=== PATIENT | male | born 2005 | race Caucasian/White ===

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

== ENCOUNTER 2023-02-16 08:32 | Emergency (ER) | payer MEDICAID, SELFPAY ==
[2023-02-16 09:01] VITALS: BP 126/84; PULSE 84; RESP 18; TEMP 36.8; O2SAT 100; BMI 35.2
--- NOTE | 2023-02-16 09:30 | W.ED.ALLEREA ---
HPI - Allergic Reaction General: Chief complaint: Allergic Reaction Stated complaint: allergic reaction Time Seen by Provider: 02/16/23 09:17 Source: patient Mode of arrival: ambulatory History of Present Illness: HPI narrative: 17-year-old male who presents to the emergency room with complaints of multiple insect bites. He states the homeless care home stating it has bedbugs and he has bites on his torso and extremities 1 on his face. He is extremely anxious. 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 He feels like he is swelling. He is mildly tachypneic when I came to see him but not having any respiratory distress no use of accessory respiratory muscles. Associated symptoms: Deny abdominal pain, nausea or vomiting Review of Systems Const: Denies: fever(s) or chills ENMT: Denies: throat pain, ear or mastoid pain, nasal discharge or nasal congestion Card: Denies: chest pain, edema, dyspnea on exertion or orthopnea Resp: Denies: dyspnea, productive cough or non-productive cough GI: Denies: abdominal pain, nausea or vomiting : Denies: dysuria, urinary frequency or urinary urgency PFSH ED PFSH: Medical History Borderline personality disorder Obsessive-compulsive personality disorder Social History Smoking and tobacco status: current every day smoker Physical Exam Const: GENERAL APPEARANCE: cooperative and comfortable ORIENTATION/CONSCIOUSNESS: Yes awake, Yes oriented to person, Yes oriented to place and Yes oriented to time HENMT: COMMON NORMALS: normocephalic, atraumatic and hearing grossly normal bilaterally HEAD & SCALP: normocephalic and atraumatic Resp: COMMON NORMALS: normal respiratory effort, No retractions, No use of accessory muscles and clear to auscultation bilaterally AUSCULTATION: clear to auscultation bilaterally Cardio: COMMON NORMALS: regular rate, regular rhythm and No murmurs present (Cardio) RATE: regular rate RHYTHM: regular rhythm GI: COMMON NORMALS: Soft to palpation and No hepatosplenomegaly present AUSCULTATION: Yes normoactive bowel sounds PALPATION: Yes Soft to palpation, No Tenderness to palpation present (GI), No Guarding due to palpation present (GI) and Yes No hepatosplenomegaly present Extremity: COMMON NORMALS: normal to inspection, capillary refill normal, no clubbing, cyanosis or edema, no calf tenderness and no pedal edema Neuro: SENSORIUM/ORIENTATION: Yes oriented to person, Yes oriented to place and Yes oriented to time Skin: OTHER: Scattered skin irritation on extremities and trunk 1 on the face no evidence of infection no localized reactions no erythema no induration. Course Vital Signs: Vital signs: Vital Signs Temperature 97.8 F 02/16/23 09:43 Pulse Rate 74 02/16/23 09:43 Respiratory Rate 17 02/16/23 09:43 Blood Pressure 130/78 02/16/23 09:43 Pulse Oximetry 97 02/16/23 09:43 Oxygen Delivery Me thod Room Air 02/16/23 09:43 MDM - Allergic Reaction Medical Decision Making Localized irritation at the bite sites but no systemic symptoms no facial swelling no oropharyngeal swelling no wheezing no stridor. Use antihistamines and steroids as needed topical steroids to areas of irritation that are more problems some and follow-up as needed avoid reexposure. Medical Records I reviewed the patient's medical records. Lab Data I reviewed the patient's lab results. Discharge Plan Discharge Patient Disposition: Home Clinical Impression: Insect bites Condition: Stable Prescriptions: New Medrol (Manav) 4 mg tablets,dose pack See Rx Instructions .ROUTE .COMPLEX Qty: 21 0RF Rx Instructions: orally per package directions triamcinolone acetonide 0.1 % cream 1 applic topical TID Qty: 80 0RF Rx Instructions: Apply to affected areas, do not apply to face or genitals hydroxyzine HCl 25 mg tablet 25 mg PO Q6H PRN (Reason: itching) Qty: 20 0RF No Action (DME) AFO to the Right and Left Lower Extremity See Rx Instructions .Route .MEDSUPPLY Qty: 1 0RF Rx Instructions: As directed Alpha & [place] ibuprofen 200 mg Tablet 800 mg PO Q6H PRN (Reason: Pain) Adderall 7.5 mg Tablet 7.5 mg PO BID Rx Instructions: administer doses at least 4-6 hours apart gabapentin 600 mg Tablet 600 mg PO BID gabapentin 300 mg Capsule 300 mg PO QAM Ventolin HFA 90 mcg/actuation Hfa Aerosol Inhaler 2 puff INHALATION QID PRN (Reason: Shortness Of Breath Or Wheezing) Symbicort 160-4.5 mcg/actuation Hfa Aerosol Inhaler 2 puff INHALATION BID duloxetine 30 mg Capsule, Delayed Rel Sprinkle 30 mg PO DAILY Discharge Orders: Discharge ED (Routine); Ordered 02/16/23 Ordered By: Yuriy Solorio Referrals: Shweta Owen DO [Primary Care Provider] - Discharge Diet: Usual diet Discharge Activity: Resume usual activity Patient Instructions: Opioid Safety, Pain Management Coding Level of Care Code ED Profiling Machine Operator for Amena Dunbar
[2023-02-16 09:43] VITALS: BP 130/78; PULSE 74; RESP 17; TEMP 36.6; O2SAT 97
[2023-02-16] MEDS: diphenhydrAMINE 50 mg/mL SDV 1mL IM (10:07)
[2023-02-16] MEDS: dexamethasone 10 mg/mL INJ IM (10:07)
== END 2023-02-16 10:00 | disposition home or self-care (01) ==
PROVIDERS: Emergency Provider Family Medicine; PCP Family Medicine
DX: S30.861A Insect bite (nonvenomous) of abdominal wall, initial encounter (principal); S80.862A Insect bite (nonvenomous), left lower leg, initial encounter; S80.861A Insect bite (nonvenomous), right lower leg, initial encounter; S40.862A Insect bite (nonvenomous) of left upper arm, initial encounter; S40.861A Insect bite (nonvenomous) of right upper arm, initial encounter; S00.86XA Insect bite (nonvenomous) of other part of head, initial encounter; W57.XXXA Bitten or stung by nonvenomous insect and other nonvenomous arthropods, initial encounter; F17.210 Nicotine dependence, cigarettes, uncomplicated
CPT/HCPCS: 96372; 99284; J1100; J1200

== ENCOUNTER 2023-03-01 13:21 | Emergency (ER) | payer MEDICAID, SELFPAY ==
[2023-03-01 13:56] VITALS: BP 102/65; PULSE 96; RESP 17; TEMP 36.9; O2SAT 98; BMI 32.8
[2023-03-01 15:35] LABS: Basophils # 0.1 10^3/uL (0.0-0.1); Basophils % 0.8 %; Eosinophils # 0.1 10^3/uL (0.0-0.8); Eosinophils % 1.2 %; Hematocrit 48.5 % (37-53); Lymphocytes # 1.7 10^3/uL (1.5-6.5); Lymphocytes % 19.8 %; Mean Corpuscular HGB Conc 33.4 g/dL (30-55); Mean Corpuscular Hemoglobin 29.1 pg (27-33); Mean Corpuscular Volume 87.2 fl (82-101); Monocytes # 0.5 10^3/uL (0.2-0.9); Monocytes % 5.5 %; Neutrophils # 6.28 10^3/uL (1.8-8.0); Neutrophils % 72.5 %; Nucleated Red Blood Cells % 0 %; Platelet Count 344 10^3/cmm (157-399); Red Blood Count 5.56 10^6/uL (3.85-5.65); Red Cell Distribution Width 11.9 % (12.1-15.1); White Blood Count 8.67 10^3/uL (4.5-13.0)
[2023-03-01 15:51] LABS: Alanine Aminotransferase 49 U/L (0-41); Alkaline Phosphatase 105 U/L (40-130); Anion Gap 13.1 (5-19); Aspartate Amino Transferase 20 U/L (0-40); Blood Urea Nitrogen 13 mg/dL (6-20); Calcium 9.6 mg/dL (8.5-10.5); Carbon Dioxide 26 mmol/L (22-29); Chloride 105 mmol/L (98-107); Globulin 2.7 g/dL (1.3-4.6); Glomerular Filtration Rate 96.3 mL/min (90-130); Glucose 80 mg/dL (65-115); Lipase 16 U/L (13-60); Osmolality Calculated 289 mOsm/kg (285-295); Potassium 4.1 mmol/L (3.5-5.1); Sodium 140 mmol/L (136-145); Total Bilirubin 0.4 mg/dL (0.15-1.2); Total Protein 7.7 g/dL (6.6-8.7)
[2023-03-01] MEDS: ondansetron 2 mg/ML SDV 2 mL 4 MG IVP (16:43)
[2023-03-01] MEDS: sodium chloride 0.9% 1,000 ML 999 ML IV (16:43)
--- NOTE | 2023-03-01 17:07 | W.ED.NAVMDI ---
Documented by User: RICH Loaiza 03/01/23 17:11 HPI - Nausea/Vomiting/Diarrhea General: Chief complaint: Nausea/Vomiting/Diarrhea Stated complaint: N/V/D, dizzy Time Seen by Provider: 03/01/23 14:11 History of Present Illness: Patient is in today for nausea and vomiting. Patient reports that he has had intermittent abdominal pain since Sunday and then yesterday started vomiting he has vomited more than 12 times today and had 6 diarrhea episodes. He does report a little bit of blood in his vomit that is bright red. He denies any fever, chills. He reports that he has had issues similar to this in the past and he was treated with Protonix for GERD. He has not been on the Protonix for some time because it has not been refilled through his primary care provider. He does currently live in a [facility] as he is homeless. He reports that today he passed out 2 times. He reports that when he has had episodes like this in the past he is also passed out those times as well Associated nausea: Yes Associated symtoms: Reports nausea; Denies chest pain, dysuria, headache(s) or palpitations Review of Systems Const: Reports: fever(s), chills and body aches ENMT: Reports: throat pain, nasal congestion and post nasal drip Card: Denies: chest pain, palpitations or irregular heart rhythm Resp: Reports: non-productive cough; Denies: dyspnea GI: Reports: abdominal pain, nausea, vomiting, hematemesis and diarrhea : Denies: flank pain, dysuria or urinary frequency Neuro: Reports: other (Syncopal episode x2); Denies: headache(s) PFS ED PFSH: Medical History Borderline personality disorder Obsessive-compulsive personality disorder Social History Smoking and tobacco status: current every day smoker Physical Exam Const: COMMON NORMALS: no acute distress, patient oriented x3 and alert GENERAL APPEARANCE: cooperative ORIENTATION/CONSCIOUSNESS: Yes awake, Yes oriented to person, Yes oriented to place and Yes oriented to time HENMT: COMMON NORMALS: EAC's normal and TM's normal bilaterally EXTERNAL AUDITORY CANAL: EAC's normal TYMPANIC MEMBRANE: TM's normal bilaterally MOUTH: Normal oral and palatal mucosa present THROAT: posterior oropharynx normal Eye: COMMON NORMALS: Equal, round and reactive pupils present, EOMs intact bilaterally and conjunctivae normal GENERAL EYE: appearance normal, both eyes and all related structures ALIGNMENT: Yes alignment normal CONJUNCTIVA: Yes conjunctivae normal SCLERA: sclerae normal PUPIL: Yes Equal, round and reactive pupils present Neck/C-Spine: COMMON NORMALS: full ROM Resp: COMMON NORMALS: normal respiratory effort, No retractions, No use of accessory muscles and clear to auscultation bilaterally EFFORT & INSPECTION: Yes symmetric chest movement AUSCULTATION: clear to auscultation bilaterally Cardio: COMMON NORMALS: regular rate, regular rhythm, S1 normal heart sound present and S2 normal heart sound present RATE: regular rate RHYTHM: regular rhythm HEART SOUNDS: S1 normal heart sound present and S2 normal heart sound present GI: COMMON NORMALS: Soft to palpation INSPECTION: Yes normal to inspection AUSCULTATION: Yes normoactive bowel sounds PALPATION: Yes Soft to palpation and Yes Tenderness to palpation present (GI) (Generalized tenderness. No rebound tenderness) : COMMON NORMALS: Yes no CVA tenderness BLADDER/KIDNEY EXAM: Yes no CVA tenderness Back/Pelvis: COMMON NORMALS: no CVA tenderness Neuro: COMMON NORMALS: patient oriented x3 SENSORIUM/ORIENTATION: Yes alert, Yes oriented to person, Yes oriented to place and Yes oriented to time Psych: COMMON NORMALS: cooperative Skin: NARRATIVE SKIN EXAM: Numerous pinpoint scabbed lesions over trunk and bilateral upper and lower extremities. Patient reports recent bedbug infestation at the [facility]. Course Vital Signs: Vital signs: Vital Signs Temperature 98.4 F 03/01/23 13:56 Pulse Rate 96 03/01/23 13:56 Respiratory Rate 17 03/01/23 13:56 Blood Pressure 102/65 03/01/23 13:56 Pulse Oximetry 98 03/01/23 13:56 Oxygen Delivery Me thod Room Air 03/01/23 13:56 MDM - Nausea/Vomiting/Diarrhea Medical Decision Making Care of pt transferred to [facility] Scott[facility]. Lab Data 03/01/23 15:18 03/01/23 15:18 Laboratory Results WBC 8.67 10^3/uL (4.5-13.0) 03/01/23 15:18 RBC 5.56 10^6/uL (3.85-5.65) 03/01/23 15:18 Hgb 16.20 g/dL (13.2-15.6) H 03/01/23 15:18 Hct 48.5 % (37-53) 03/01/23 15:18 MCV 87.2 fl (82-101) 03/01/23 15:18 MCH 29.1 pg (27-33) 03/01/23 15:18 MCHC 33.4 g/dL (30-55) 03/01/23 15:18 RDW 11.9 % (12.1-15.1) L 03/01/23 15:18 Plt Count 344 10^3/cmm (157-399) 03/01/23 15:18 MPV 11.0 fL (7.4-10.4) H 03/01/23 15:18 Neut % (Auto) 72.5 % 03/01/23 15:18 Lymph % (Auto) 19.8 % 03/01/23 15:18 [place] % (Auto) 5.5 % 03/01/23 15:18 Eos % (Auto) 1.2 % 03/01/23 15:18 Baso % (Auto) 0.8 % 03/01/23 15:18 Neut # (Auto) 6.28 10^3/uL (1.8-8.0) 03/01/23 15:18 Lymph # (Auto) 1.7 10^3/uL (1.5-6.5) 03/01/23 15:18 [place] # (Auto) 0.5 10^3/uL (0.2-0.9) 03/01/23 15:18 Eos # (Auto) 0.1 10^3/uL (0.0-0.8) 03/01/23 15:18 Baso # (Auto) 0.1 10^3/uL (0.0-0.1) 03/01/23 15:18 Nucleated RBC % (auto) 0 % 03/01/23 15:18 Nucleated RBCs # 0.0 /100WBC 03/01/23 15:18 Sodium 140 mmol/L (136-145) 03/01/23 15:18 Potassium 4.1 mmol/L (3.5-5.1) 03/01/23 15:18 Chloride 105 mmol/L (98-107) 03/01/23 15:18 Carbon Dioxide 26 mmol/L (22-29) 03/01/23 15:18 Anion Gap 13.1 (5-19) 03/01/23 15:18 BUN 13 mg/dL (6-20) 03/01/23 15:18 Creatinine 1.0 mg/dL (0.7-1.2) 03/01/23 15:18 GFR Calculation 96.3 mL/min (90-130) 03/01/23 15:18 Glucose 80 mg/dL (65-115) 03/01/23 15:18 Calculated Osmolality 289 mOsm/kg (285-295) 03/01/23 15:18 Calcium 9.6 mg/dL (8.5-10.5) 03/01/23 15:18 Total Bilirubin 0.4 mg/dL (0.15-1.2) 03/01/23 15:18 AST 20 U/L (0-40) 03/01/23 15:18 ALT 49 U/L (0-41) H 03/01/23 15:18 Alkaline Phosphatase 105 U/L (40-130) 03/01/23 15:18 Total Protein 7.7 g/dL (6.6-8.7) 03/01/23 15:18 Albumin 5.0 g/dL (3.5-5.2) 03/01/23 15:18 Globulin 2.7 g/dL (1.3-4.6) 03/01/23 15:18 Lipase 16 U/L (13-60) 03/01/23 15:18 Discharge Plan Discharge Patient Disposition: Home Clinical Impression: Gastritis Qualifiers: Gastritis type: unspecified gastritis Chronicity: acute Gastritis bleeding: presence of bleeding unspecified Qualified Code(s): K29.00 - Acute gastritis without bleeding Condition: Stable Prescriptions: New promethazine 12.5 mg tablet 12.5 mg PO TID PRN (Reason: nausea and vomiting) Qty: 15 0RF Rx Instructions: 3 doses during day; last dose no later than 4 hr before bedtime pantoprazole 40 mg tablet,delayed release (DR/EC) 40 mg PO DAILY Qty: 30 0RF No Action (DME) AFO to the Right and Left Lower Extremity See Rx Instructions .Route .MEDSUPPLY Qty: 1 0RF Rx Instructions: As directed [place] [facility] [place] ibuprofen 200 mg Tablet 800 mg PO Q6H PRN (Reason: Pain) triamcinolone acetonide 0.1 % cream 1 applic topical TID Qty: 80 0RF Rx Instructions: Apply to affected areas, do not apply to face or genitals hydroxyzine HCl 25 mg tablet 25 mg PO Q6H PRN (Reason: itching) Qty: 20 0RF dextroamphetamine-amphetamine [Adderall] 7.5 mg Tablet 7.5 mg PO BID Rx Instructions: administer doses at least 4-6 hours apart gabapentin 600 mg Tablet 600 mg PO BID Rx Instructions: in afternoon and night gabapentin 300 mg Capsule 300 mg PO QAM albuterol sulfate [Ventolin HFA] 90 mcg/actuation Hfa Aerosol Inhaler 2 puff INHALATION QID PRN (Reason: Shortness Of Breath Or Wheezing) budesonide-formoterol [Symbicort] 160-4.5 mcg/actuation Hfa Aerosol Inhaler 2 puff INHALATION BID duloxetine 30 mg Capsule, Delayed Rel Sprinkle 30 mg PO DAILY acetaminophen 500 mg Tablet 1,000 mg PO Q6H PRN (Reason: Pain) Discharge Orders: Discharge ED (Routine); Ordered 03/01/23 Ordered By: Virgilio Berger Referrals: Shweta Owen DO [Primary Care Provider] - Discharge Diet: Advance as tolerated Discharge Activity: Increase activity as tolerated Patient Instructions: Gastritis in Children (ED) Activity Restrictions/Additional Instructions: Use promethazine 1 tablet every 8 hours as needed for nausea or vomiting. Light diet avoiding really acidic or spicy foods. Drink frequent sips of fluid to maintain hydration. Take pantoprazole as directed. Follow-up with primary care for further instructions. Return to ED for new concerns. Coding Level of Care Code ED Truck Spotter for Chg Fwd Documented by User: BOBY Holder 03/01/23 17:59 HPI - Nausea/Vomiting/Diarrhea General: Chief complaint: Nausea/Vomiting/Diarrhea Stated complaint: N/V/D, dizzy Time Seen by Provider: 03/01/23 14:11 PFSH ED PFSH: Medical History Borderline personality disorder Obsessive-compulsive personality disorder Social History Smoking and tobacco status: current every day smoker Course Vital Signs: Vital signs: Vital Signs Temperature 98.4 F 03/01/23 13:56 Pulse Rate 96 03/01/23 13:56 Respiratory Rate 17 03/01/23 13:56 Blood Pressure 102/65 03/01/23 13:56 Pulse Oximetry 98 03/01/23 13:56 Oxygen Delivery Me thod Room Air 03/01/23 13:56 MDM - Nausea/Vomiting/Diarrhea Medical Decision Making Care of pt transferred to Paul Berger. Received patient from BOBY Loaiza. Patient has some nausea and vomiting starting today. Patient reports a history of GERD and believes he has had an exacerbation of it. Patient appears nontoxic. On my exam patient was eating a sandwich and tolerating it. Patient reports continued some epigastric discomfort. Differential diagnosis includes GERD, gastritis, dehydration, malingering, appendicitis. Laboratory values were unremarkable. No signs of appendicitis were noted on exam or other surgical abdomen. Patient was recommended to eat a light diet drink plenty of fluids. Patient was written a prescription for pantoprazole with recommendations to follow-up with primary care. Patient was also given promethazine to help treat nausea and vomiting as needed. Patient reported understanding of care plan and need for follow-up. Lab Data 03/01/23 15:18 03/01/23 15:18 Laboratory Results WBC 8.67 10^3/uL (4.5-13.0) 03/01/23 15:18 RBC 5.56 10^6/uL (3.85-5.65) 03/01/23 15:18 Hgb 16.20 g/dL (13.2-15.6) H 03/01/23 15:18 Hct 48.5 % (37-53) 03/01/23 15:18 MCV 87.2 fl (82-101) 03/01/23 15:18 MCH 29.1 pg (27-33) 03/01/23 15:18 MCHC 33.4 g/dL (30-55) 03/01/23 15:18 RDW 11.9 % (12.1-15.1) L 03/01/23 15:18 Plt Count 344 10^3/cmm (157-399) 03/01/23 15:18 MPV 11.0 fL (7.4-10.4) H 03/01/23 15:18 Neut % (Auto) 72.5 % 03/01/23 15:18 Lymph % (Auto) 19.8 % 03/01/23 15:18 [place] % (Auto) 5.5 % 03/01/23 15:18 Eos % (Auto) 1.2 % 03/01/23 15:18 Baso % (Auto) 0.8 % 03/01/23 15:18 Neut # (Auto) 6.28 10^3/uL (1.8-8.0) 03/01/23 15:18 Lymph # (Auto) 1.7 10^3/uL (1.5-6.5) 03/01/23 15:18 [place] # (Auto) 0.5 10^3/uL (0.2-0.9) 03/01/23 15:18 Eos # (Auto) 0.1 10^3/uL (0.0-0.8) 03/01/23 15:18 Baso # (Auto) 0.1 10^3/uL (0.0-0.1) 03/01/23 15:18 Nucleated RBC % (auto) 0 % 03/01/23 15:18 Nucleated RBCs # 0.0 /100WBC 03/01/23 15:18 Sodium 140 mmol/L (136-145) 03/01/23 15:18 Potassium 4.1 mmol/L (3.5-5.1) 03/01/23 15:18 Chloride 105 mmol/L (98-107) 03/01/23 15:18 Carbon Dioxide 26 mmol/L (22-29) 03/01/23 15:18 Anion Gap 13.1 (5-19) 03/01/23 15:18 BUN 13 mg/dL (6-20) 03/01/23 15:18 Creatinine 1.0 mg/dL (0.7-1.2) 03/01/23 15:18 GFR Calculation 96.3 mL/min (90-130) 03/01/23 15:18 Glucose 80 mg/dL (65-115) 03/01/23 15:18 Calculated Osmolality 289 mOsm/kg (285-295) 03/01/23 15:18 Calcium 9.6 mg/dL (8.5-10.5) 03/01/23 15:18 Total Bilirubin 0.4 mg/dL (0.15-1.2) 03/01/23 15:18 AST 20 U/L (0-40) 03/01/23 15:18 ALT 49 U/L (0-41) H 03/01/23 15:18 Alkaline Phosphatase 105 U/L (40-130) 03/01/23 15:18 Total Protein 7.7 g/dL (6.6-8.7) 03/01/23 15:18 Albumin 5.0 g/dL (3.5-5.2) 03/01/23 15:18 Globulin 2.7 g/dL (1.3-4.6) 03/01/23 15:18 Lipase 16 U/L (13-60) 03/01/23 15:18 Discharge Plan Discharge Patient Disposition: Home Clinical Impression: Gastritis Qualifiers: Gastritis type: unspecified gastritis Chronicity: acute Gastritis bleeding: presence of bleeding unspecified Qualified Code(s): K29.00 - Acute gastritis without bleeding Condition: Stable Prescriptions: New promethazine 12.5 mg tablet 12.5 mg PO TID PRN (Reason: nausea and vomiting) Qty: 15 0RF Rx Instructions: 3 doses during day; last dose no later than 4 hr before bedtime pantoprazole 40 mg tablet,delayed release (DR/EC) 40 mg PO DAILY Qty: 30 0RF No Action (DME) AFO to the Right and Left Lower Extremity See Rx Instructions .Route .MEDSUPPLY Qty: 1 0RF Rx Instructions: As directed Alpha & [place] ibuprofen 200 mg Tablet 800 mg PO Q6H PRN (Reason: Pain) triamcinolone acetonide 0.1 % cream 1 applic topical TID Qty: 80 0RF Rx Instructions: Apply to affected areas, do not apply to face or genitals hydroxyzine HCl 25 mg tablet 25 mg PO Q6H PRN (Reason: itching) Qty: 20 0RF dextroamphetamine-amphetamine [Adderall] 7.5 mg Tablet 7.5 mg PO BID Rx Instructions: administer doses at least 4-6 hours apart gabapentin 600 mg Tablet 600 mg PO BID Rx Instructions: in afternoon and night gabapentin 300 mg Capsule 300 mg PO QAM albuterol sulfate [Ventolin HFA] 90 mcg/actuation Hfa Aerosol Inhaler 2 puff INHALATION QID PRN (Reason: Shortness Of Breath Or Wheezing) budesonide-formoterol [Symbicort] 160-4.5 mcg/actuation Hfa Aerosol Inhaler 2 puff INHALATION BID duloxetine 30 mg Capsule, Delayed Rel Sprinkle 30 mg PO DAILY acetaminophen 500 mg Tablet 1,000 mg PO Q6H PRN (Reason: Pain) Discharge Orders: Discharge ED (Routine); Ordered 03/01/23 Ordered By: Virgilio Berger Referrals: Shweta Owen DO [Primary Care Provider] - Discharge Diet: Advance as tolerated Discharge Activity: Increase activity as tolerated Patient Instructions: Gastritis in Children (ED) Activity Restrictions/Additional Instructions: Use promethazine 1 tablet every 8 hours as needed for nausea or vomiting. Light diet avoiding really acidic or spicy foods. Drink frequent sips of fluid to maintain hydration. Take pantoprazole as directed. Follow-up with primary care for further instructions. Return to ED for new concerns. Coding Level of Care Code ED Truck Spotter for Amena Dunbar
== END 2023-03-01 18:35 | disposition home or self-care (01) ==
PROVIDERS: Nurse Practitioner Family; Emergency Provider Nurse Practitioner Family; PCP Family Medicine
DX: K29.00 Acute gastritis without bleeding (principal); F17.210 Nicotine dependence, cigarettes, uncomplicated
CPT/HCPCS: 36415; 80053; 83690; 85025; 96361; 96374; 99284; J2405; J7030

== ENCOUNTER 2023-08-28 19:03 | Emergency (ER) | payer SELFPAY ==
[2023-08-28 19:37] VITALS: BP 118/72; PULSE 74; RESP 16; TEMP 36.8; O2SAT 97; BMI 31.8
--- NOTE | 2023-08-28 20:47 | W.ED.GENADLT ---
HPI - General Adult General: Chief complaint: General Medical Stated complaint: Left side of face swelling Time Seen by Provider: 08/28/23 20:47 Source: patient Mode of arrival: ambulatory Limitations: no limitations History of Present Illness: 18yo male presents with sudden onset localized swelling to the left lower jaw/cheek area that started this morning. Patient reports that it was marble size this morning and it has now progressed. States that the area is numb. States that he has had mild lightheadedness. Reports increased discomfort to the area when he is opening his mouth or when he is eating. He denies any fevers, chills, recent illness, bad teeth, any other concerns at this time. Review of Systems Const: Denies: fever(s) or chills ENMT: Reports: other (swelling left lower jaw/face) [facility] ED PFSH: Medical History Obsessive-compulsive personality disorder Borderline personality disorder Social History Smoking and tobacco/nicotine status: current every day tobacco/nicotine user Physical Exam Const: COMMON NORMALS: no acute distress GENERAL APPEARANCE: cooperative ORIENTATION/CONSCIOUSNESS: Yes awake OTHER: Patient is ambulatory to the exam room unassisted. He is sitting upright on stretcher no acute distress. He is able to give history with no difficulty. No family is at bedside HENMT: COMMON NORMALS: normocephalic, external ears normal and Normal external nose present HEAD & SCALP: normocephalic FACE & SINUS: no erythema and no laceration FACE & SINUS IMAGES: 1. localized swelling. no fluctuance noted. NOSE: Normal external nose present EXTERNAL EAR: Yes external ears normal and Yes external ear abnormal TYMPANIC MEMBRANE: TM normal on the left MOUTH: Normal oral and palatal mucosa present and lip normal Eye: COMMON NORMALS: conjunctivae normal CONJUNCTIVA: Yes conjunctivae normal Neck/C-Spine: COMMON NORMALS: full ROM Chest: CHEST: Yes Symmetrical chest wall rise Resp: COMMON NORMALS: normal respiratory effort and clear to auscultation bilaterally AUSCULTATION: clear to auscultation bilaterally Cardio: COMMON NORMALS: regular rate and regular rhythm RATE: regular rate RHYTHM: regular rhythm Skin: COMMON NORMALS: no rashes or lesions noted GENERAL SKIN EXAM: no rashes or lesions noted Course Vital Signs: Vital signs: Vital Signs Temperature 98.3 F 08/28/23 19:37 Pulse Rate 76 08/28/23 21:30 Respiratory Rate 16 08/28/23 19:37 Blood Pressure 118/72 08/28/23 19:37 Pulse Oximetry 99 08/28/23 21:30 Oxygen Delivery Me thod Room Air 08/28/23 19:37 MDM - General Adult Medical Decision Making 18yo male here for evaluation of localized swelling to the left lower jaw/cheek area that has been ongoing since this morning. Patient reports that it started about the size of a marble and has continued to increase in size. States that it is itchy. Reports that the area is numb and slightly sore around the area. He denies fall, trauma, known injury, fever, dental issues, any other concern at this time. Patient is nontoxic in appearance. Vital signs are stable. Discussed with patient this is potentially a cyst, but more likely infectious. Augmentin provided while in the emergency department and prescription was sent to patient's pharmacy. Discussed with patient he can continue to use [id number] Benadryl to help with the itching, but he may wish to switch to cetirizine/loratadine to see if he has better relief. Advised application of a cool compress and continue to monitor closely. Recommend he follow-up with primary care, call later this week with an update of symptoms and to discuss a recheck. Advised to return to the emergency department if any rapid worsening symptoms, onset of fever associated with worsening, and as needed. Patient states understanding has no further questions or concerns at this time. Medical Records I reviewed the patient's medical records. No radiology studies performed this visit Discharge Plan Discharge Patient Disposition: Home Clinical Impression: Infection, face Condition: Stable Prescriptions: New amoxicillin-pot clavulanate 875-125 mg tablet 1 tab PO Q12H Qty: 14 0RF No Action (DME) AFO to the Right and Left Lower Extremity See Rx Instructions .Route .MEDSUPPLY Qty: 1 0RF Rx Instructions: As directed [facility] [place] ibuprofen 200 mg Tablet 800 mg PO Q6H PRN (Reason: Pain) triamcinolone acetonide 0.1 % cream 1 applic topical TID Qty: 80 0RF Rx Instructions: Apply to affected areas, do not apply to face or genitals hydroxyzine HCl 25 mg tablet 25 mg PO Q6H PRN (Reason: itching) Qty: 20 0RF dextroamphetamine-amphetamine [Adderall] 7.5 mg Tablet 7.5 mg PO BID Rx Instructions: administer doses at least 4-6 hours apart gabapentin 600 mg Tablet 600 mg PO BID Rx Instructions: in afternoon and night gabapentin 300 mg Capsule 300 mg PO QAM albuterol sulfate [Ventolin HFA] 90 mcg/actuation Hfa Aerosol Inhaler 2 puff INHALATION QID PRN (Reason: Shortness Of Breath Or Wheezing) budesonide-formoterol [Symbicort] 160-4.5 mcg/actuation Hfa Aerosol Inhaler 2 puff INHALATION BID duloxetine 30 mg Capsule, Delayed Rel Sprinkle 30 mg PO DAILY acetaminophen 500 mg Tablet 1,000 mg PO Q6H PRN (Reason: Pain) promethazine 12.5 mg tablet 12.5 mg PO TID PRN (Reason: nausea and vomiting) Qty: 15 0RF Rx Instructions: 3 doses during day; last dose no later than 4 hr before bedtime pantoprazole 40 mg tablet,delayed release (DR/EC) 40 mg PO DAILY Qty: 30 0RF Discharge Orders: Discharge ED (Routine); Ordered 08/28/23 Ordered By: Red Burnett Referrals: Shweta Owen DO [Primary Care Provider] - Discharge Diet: Advance as tolerated Discharge Activity: Resume usual activity Activity Restrictions/Additional Instructions: Continue to monitor for any rapid worsening You may use cetirizine (Zyrtec) or loratadine (Claritin) in addition to [id number] Benadryl to help with the itching. You will also want to apply a cool compress to help with the swelling and itching Augmentin has been sent to your pharmacy due to concern of infection Follow-up with your doctor, call in the next few days with an update of symptoms and to discuss a recheck Return to the emergency department if any rapid worsening symptoms, difficulty breathing, difficulty swallowing, and as needed. Coding Level of Care Code ED Interior Specialist for Amena Dunbar
[2023-08-28] MEDS: diphenhydrAMINE 50 mg Capsule PO (21:25)
[2023-08-28] MEDS: amoxicillin-clav 875-125 mg Tablet 1 TAB PO (21:25)
[2023-08-28 21:30] VITALS: PULSE 76; O2SAT 99
== END 2023-08-28 21:30 | disposition home or self-care (01) ==
PROVIDERS: Emergency Provider Nurse Practitioner; PCP Family Medicine
DX: B99.9 Unspecified infectious disease (principal); Z72.0 Tobacco use
CPT/HCPCS: 99283; Q0163

== ENCOUNTER 2024-04-01 16:18 | Emergency (ER) | payer SELFPAY ==
[2024-04-01 16:19] VITALS: BP 136/76; PULSE 74; RESP 18; TEMP 36.7; O2SAT 98; BMI 25.8
[2024-04-01 16:42] LABS: Basophils # 0.1 10^3/uL (0.0-0.1); Basophils % 0.8 %; Eosinophils # 0.2 10^3/uL (0.0-0.8); Eosinophils % 2.1 %; Hematocrit 42.1 % (37-53); Lymphocytes # 1.8 10^3/uL (1.5-6.5); Lymphocytes % 23.3 %; Mean Corpuscular Volume 90.9 fl (82-101); Mean Platelet Volume 10.7 fL (7.4-10.4); Monocytes # 0.5 10^3/uL (0.2-0.9); Monocytes % 6.1 %; Neutrophils # 5.19 10^3/uL (1.8-8.0); Neutrophils % 67.6 %; Nucleated Red Blood Cells % 0 %; Platelet Count 258 10^3/cmm (157-399); Red Blood Count 4.63 10^6/uL (3.85-5.65); Red Cell Distribution Width 12.8 % (12.1-15.1); White Blood Count 7.68 10^3/uL (4.5-13.0)
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
[2024-04-01 16:58] LABS: Alanine Aminotransferase 33 U/L (0-41); Albumin Level 4.3 g/dL (3.5-5.2); Alkaline Phosphatase 98 U/L (40-130); Anion Gap 17.7 (5-19); Aspartate Amino Transferase 17 U/L (0-40); Blood Urea Nitrogen 20 mg/dL (6-20); Calcium 9.2 mg/dL (8.5-10.5); Carbon Dioxide 21 mmol/L (22-29); Chloride 105 mmol/L (98-107); Creatinine Clr Calc Pharmacy 141.5904; Globulin 2.8 g/dL (1.3-4.6); Glomerular Filtration Rate 107.6 mL/min (90-130); Glucose 82 mg/dL (65-115); Osmolality Calculated 292 mOsm/kg (285-295); Potassium 3.7 mmol/L (3.5-5.1); Sodium 140 mmol/L (136-145); Total Bilirubin 0.6 mg/dL (0.15-1.2); Total Protein 7.1 g/dL (6.6-8.7)
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
[2024-04-01] MEDS: ketorolac 30 mg/mL INJ IVP (17:18)
[2024-04-01] MEDS: iohexol 350 mg/mL 500 mL Btl (per mL) IV (17:41)
[2024-04-01 17:44] VITALS: BP 128/67; PULSE 75; O2SAT 96
[2024-04-01 18:14] VITALS: BP 108/58; PULSE 70; O2SAT 96
== END 2024-04-01 18:15 | disposition home or self-care (01) ==
PROVIDERS: Emergency Provider Family Medicine; PCP Family Medicine
DX: M25.512 Pain in left shoulder (principal); M25.511 Pain in right shoulder; M54.9 Dorsalgia, unspecified; M25.551 Pain in right hip; V03.131A Pedestrian on standing electric scooter injured in collision with car, pick-up or van in traffic accident, initial encounter; Y92.410 Unspecified street and highway as the place of occurrence of the external cause
CPT/HCPCS: 36415; 70450; 71260; 72125; 74177; 80053; 85025; 96374; 99285; J1885

== ENCOUNTER 2024-09-02 10:24 | Emergency (ER) | payer OTHER, SELFPAY ==
[2024-09-02 10:30] VITALS: BP 120/78; PULSE 85; TEMP 36.9; O2SAT 97; BMI 27.2
--- NOTE | 2024-09-02 10:36 | ECG_ITS ---
[facility]: 2024-09-02 Pat Name: Aneudy Lehman Department: Room: Gender: Male Water Project Manager: : 2005 Requested By: Angela Dennison Order Number: [id number] Nieto MD: Jose Gonzales M.D. Measurements Intervals [place] Rate: 82 P: 39 FL: 143 QRS: 16 QRSD: 100 T: 33 QT: 349 QTc: 409 Interpretive Statements SINUS RHYTHM No previous ECG available for comparison Electronically Signed On 09-06-2024 19:45:36 ACCOUNT SUPERVISOR by Jose Gonzales M.D. [id number]
--- NOTE | 2024-09-02 10:37 | XRR_ITS ---
PROCEDURE INFORMATION: Exam: XR Chest Exam date and time: 09/02/2024 10:46 AM Age: 19 years old Clinical indication: Other: Syncope TECHNIQUE: Imaging protocol: Radiologic exam of the chest. Views: 1 view. COMPARISON: CT chest abdpel w/*[id number] 04/01/2024 5:29 PM FINDINGS: Lungs: Unremarkable. No consolidation. Pleural spaces: Unremarkable. No pleural effusion. No pneumothorax. Heart/Mediastinum: Unremarkable. No cardiomegaly. Bones/joints: Unremarkable. XR/XR chest 1V portable [id number] IMPRESSION: No acute findings.
[2024-09-02 10:58] LABS: Basophils # 0.1 10^3/uL (0.0-0.1); Eosinophils # 0.2 10^3/uL (0.0-0.8); Eosinophils % 2.5 %; Hematocrit 42.9 % (37-53); Lymphocytes # 1.7 10^3/uL (0.8-4.8); Mean Corpuscular HGB Conc 33.3 g/dL (30-55); Mean Corpuscular Volume 90.1 fl (82-101); Mean Platelet Volume 10.5 fL (7.4-10.4); Monocytes # 0.5 10^3/uL (0.2-0.9); Monocytes % 7.7 %; Neutrophils # 4.35 10^3/uL (1.8-7.7); Neutrophils % 63.7 %; Nucleated Red Blood Cells % 0 %; Platelet Count 259 10^3/cmm (157-399); Red Blood Count 4.76 10^6/uL (3.85-5.65); Red Cell Distribution Width 12.3 % (12.1-15.1); White Blood Count 6.84 10^3/uL (3.29-11.43)
[2024-09-02 11:20] LABS: Alanine Aminotransferase 33 U/L (0-41); Albumin Level 4.1 g/dL (3.5-5.2); Alkaline Phosphatase 110 U/L (40-130); Anion Gap 14.2 (5-19); Aspartate Amino Transferase 16 U/L (0-40); Blood Urea Nitrogen 12 mg/dL (6-20); Carbon Dioxide 23 mmol/L (22-29); Chloride 106 mmol/L (98-107); Creatinine Clr Calc Pharmacy 117.6075; Globulin 2.7 g/dL (1.3-4.6); Glomerular Filtration Rate 84.5 mL/min (90-130); Glucose 93 mg/dL (65-115); Osmolality Calculated 287 mOsm/kg (285-295); Potassium 4.2 mmol/L (3.5-5.1); Sodium 139 mmol/L (136-145); Total Bilirubin 0.3 mg/dL (0.15-1.2); Total Protein 6.8 g/dL (6.6-8.7)
[2024-09-02 11:40] LABS: Thyroid Stimulating Hormone 1.35 uIU/mL (0.27-4.20)
--- NOTE | 2024-09-02 12:35 | CT_ITS ---
WS: [id number] CT HEAD NONCONTRAST HISTORY: syncope TECHNIQUE: Contiguous axial imaging performed through the brain. Bone and soft tissue windows. Sagittal and coronal reformats reviewed. All CT scans at [facility] use at least one of these dose optimization techniques: automated exposure control; mA and/or kV adjustment per patient size (includes targeted exams where dose is matched to clinical indication); or iterative reconstruction. DLP: 1103.78 mGy.cm COMPARISON: 04/01/2024 No acute intracranial hemorrhage, midline shift or mass effect. No atrophy or prior infarcts or herniation. Ventricles: Normal size with no hydrocephalus. Paranasal sinuses: As visualized are clear. Mastoid air cells: Well pneumatized. Calvarium and scalp: Skull is intact with no soft tissue edema or swelling. CT/CT head wo con* [id number] IMPRESSION: Negative head CT.
[2024-09-02 12:40] VITALS: BP 111/75; PULSE 82; O2SAT 97
--- NOTE | 2024-09-02 12:47 | ED_ITS ---
HPI - Syncope 2 General: Chief Complaint: Syncope Stated Complaint: Syncope Time Seen by Provider: 09/02/24 12:35 Source: patient Mode of arrival: ambulatory Limitations: no limitations History of Present Illness: 19-year-old male states has been having episodes of passing out for little over a year. He states that it has been going on for a year and it just happens randomly denies it being with postural states he has had standing and laying down he had some episodes of nausea with it in the past she denies any chest pain denies any headaches he denies any worse improving factors. Associated symptoms: Reports nausea; Deny abdominal pain, chest pain, fever(s) or headache(s) Related Data Home Medications ?Medication ?Instructions ?Recorded ?Confirmed albuterol sulfate 90 mcg/actuation 2 puff inhalation Q ID PRN 02/16/23 09/02/24 aerosol inhaler (Ventolin HFA) Shortness Of Breath Or Wheezing budesonide-formoterol HFA 160 2 puff inhalation BID IN N 02/16/23 09/02/24 mcg-4.5 mcg/actuation aerosol Shortness Of Breath inhaler (Symbicort) gabapentin 300 mg capsule 300 mg PO QAM 02/16/2309/02 hydroxyzine HCl 25 mg tablet 25 mg PO Q6H PRN Itching 09/02/24 09/02/24 Previous Rx's ?Medication ?Instructions ?Recorded AFO to the Right and Left Lower #1 ea 10/26/22 Extremity ondansetron 4 mg disintegrating 4 mg PO Q6H PRN nausea and 09/02/24 tablet vomiting #14 tabs Allergies Allergy/AdvReac Type Severity Reaction Status Date / Time poison brian extract Allergy Intermediate ADR-Anxiety Verified 08/28/23 19:37 Influenza Virus Vaccines Allergy Unknown Verified 08/28/23 19:37 Review of Systems 2 Const: Denies: fever(s), chills, body aches or change in appetite ENMT: Denies: throat pain or dental pain Card: Reports: syncope; Denies: chest pain Resp: Denies: dyspnea GI: Reports: nausea and vomiting; Denies: abdominal pain or diarrhea : Denies: dysuria Musc: Denies: neck pain or back pain Skin/Breast: Denies: rash Neuro: Denies: headache(s) PFSH ED 2 PFSH: Medical History Obsessive-compulsive personality disorder Borderline personality disorder Social History Smoking and tobacco/nicotine status: current every day tobacco/nicotine user Physical Exam 2 Const: COMMON NORMALS: no acute distress, patient oriented x3 and healthy appearing HENMT: COMMON NORMALS: normocephalic and atraumatic HEAD & SCALP: n ormocephalic and atraumatic Eye: COMMON NORMALS: Equal, round and reactive pupils present and EOMs intact bilaterally PUPIL: Yes Equal, round and reactive pupils present Neck/C-Spine: COMMON NORMALS: full ROM and supple Chest: COMMONS NORMALS: normal inspection of the chest and normal palpation of entire chest wall Resp: COMMON NORMALS: normal respiratory effort, No retractions, No use of accessory muscles and clear to auscultation bilaterally AUSCULTATION: clear to auscultation bilaterally Cardio: COMMON NORMALS: regular rate, regular rhythm and No murmurs present (Cardio) RATE: regular rate RHYTHM: regular rhythm GI: COMMON NORMALS: Normal to inspection, nondistended, normoactive bowel sounds present, Soft to palpation, non-tender and no masses PALPATION: Yes Soft to palpation Extremity: COMMON NORMALS: normal to inspection and full ROM Neuro: COMMON NORMALS: patient oriented x3, moves all extremities and no focal motor deficits Psych: COMMON NORMALS: mental status grossly normal, Normal thought process present and cooperative THOUGHT PROCESS: Normal thought process present Skin: COMMON NORMALS: no rashes or lesions noted and no wounds GENERAL SKIN EXAM: no rashes or lesions noted Course 2 Vital Signs: Vital signs: Vital Signs Temperature 98.5 F 09/02/24 10:30 Pulse Rate 75 09/02/24 13:10 Blood Pressure 113/75 09/02/24 13:10 Pulse Oximetry 96 09/02/24 13:10 Oxygen Delivery Me thod Room Air 09/02/24 13:10 MDM - Syncope Medical Decision Making Patient presents here after a syncopal event has been having syncopal events for a year imaging blood work here is normal he needs to follow-up with PCP return if worsening he understands agrees plan Lab Data I reviewed the patient's lab results. 09/02/24 10:50 09/02/24 10:50 Radiology Impressions Chest X-Ray 09/02/24 10:37 IMPRESSION: No acute findings. Head CT 09/02/24 12:35 IMPRESSION: Negative head CT. Laboratory Results WBC 6.84 10^3/uL (3.29-11.43) 09/02/24 10:50 RBC 4.76 10^6/uL (3.85-5.65) 09/02/24 10:50 Hgb 14.30 g/dL (11.27-16.99) 09/02/24 10:50 Hct 42.9 % (37-53) 09/02/24 10:50 MCV 90.1 fl (82-101) 09/02/24 10:50 MCH 30.0 pg (27-33) 09/02/24 10:50 MCHC 33.3 g/dL (30-55) 09/02/24 10:50 RDW 12.3 % (12.1-15.1) 09/02/24 10:50 Plt Count 259 10^3/cmm (157-399) 09/02/24 10:50 MPV 10.5 fL (7.4-10.4) H 09/02/24 10:50 Neut % (Auto) 63.7 % 09/02/24 10:50 Lymph % (Auto) 25.0 % 09/02/24 10:50 Kaufman % (Auto) 7.7 % 09/02/24 10:50 Eos % (Auto) 2.5 % 09/02/24 10:50 Baso % (Auto) 1.0 % 09/02/24 10:50 Neut # (Auto) 4.35 10^3/uL (1.8-7.7) 09/02/24 10:50 Lymph # (Auto) 1.7 10^3/uL (0.8-4.8) 09/02/24 10:50 Kaufman # (Auto) 0.5 10^3/uL (0.2-0.9) 09/02/24 10:50 Eos # (Auto) 0.2 10^3/uL (0.0-0.8) 09/02/24 10:50 Baso # (Auto) 0.1 10^3/uL (0.0-0.1) 09/02/24 10:50 Nucleated RBC % (auto) 0 % 09/02/24 10:50 Nucleated RBCs # 0.0 /100WBC 09/02/24 10:50 Sodium 139 mmol/L (136-145) 09/02/24 10:50 Potassium 4.2 mmol/L (3.5-5.1) 09/02/24 10:50 Chloride 106 mmol/L (98-107) 09/02/24 10:50 Carbon Dioxide 23 mmol/L (22-29) 09/02/24 10:50 Anion Gap 14.2 (5-19) 09/02/24 10:50 BUN 12 mg/dL (6-20) 09/02/24 10:50 Creatinine 1.1 mg/dL (0.7-1.2) 09/02/24 10:50 GFR Calculation 84.5 mL/min (90-130) L 09/02/24 10:50 Glucose 93 mg/dL (65-115) 09/02/24 10:50 Calculated Osmolality 287 mOsm/kg (285-295) 09/02/24 10:50 Calcium 9.0 mg/dL (8.5-10.5) 09/02/24 10:50 Total Bilirubin 0.3 mg/dL (0.15-1.2) 09/02/24 10:50 AST 16 U/L (0-40) 09/02/24 10:50 ALT 33 U/L (0-41) 09/02/24 10:50 Alkaline Phosphatase 110 U/L (40-130) 09/02/24 10:50 Total Protein 6.8 g/dL (6.6-8.7) 09/02/24 10:50 Albumin 4.1 g/dL (3.5-5.2) 09/02/24 10:50 Globulin 2.7 g/dL (1.3-4.6) 09/02/24 10:50 TSH 1.35 uIU/mL (0.27-4.20) 09/02/24 10:50 All radiology interpretation(s) finalized by discharge Discharge Plan Discharge Patient Disposition: Home Clinical Impression: Syncope, Nausea Condition: Stable Prescriptions: New ondansetron 4 mg tablet,disintegrating 4 mg PO Q6H PRN (Reason: nausea and vomiting) Qty: 14 0RF No Action (DME) AFO to the Right and Left Lower Extremity See Rx Instructions .Route .MEDSUPPLY Qty: 1 0RF Rx Instructions: As directed [facility] [place] gabapentin 300 mg Capsule 300 mg PO QAM albuterol sulfate [Ventolin HFA] 90 mcg/actuation Hfa Aerosol Inhaler 2 puff INHALATION QID PRN (Reason: Shortness Of Breath Or Wheezing) budesonide-formoterol [Symbicort] 160-4.5 mcg/actuation Hfa Aerosol Inhaler 2 puff INHALATION BID PRN (Reason: Shortness Of Breath) hydroxyzine HCl 25 mg tablet 25 mg PO Q6H PRN (Reason: Itching) Discharge Orders: Discharge ED (Routine); Ordered 09/02/24 Ordered By: Julián Salazar Referrals: Shweta Owen DO [Primary Care Provider] - Discharge Diet: Advance as tolerated Discharge Activity: Resume usual activity Patient Instructions: Syncope (ED) Print Language: Honduran Coding Level of Care Code ED Curriculum And Assessment Coordinator for Amena Dunbar
[2024-09-02 13:10] VITALS: BP 113/75; PULSE 75; O2SAT 96
[2024-09-02 14:04] VITALS: BP 125/67; PULSE 72; O2SAT 97
== END 2024-09-02 14:05 | disposition home or self-care (01) ==
PROVIDERS: Physician Assistant; Emergency Provider Emergency Medicine; PCP Family Medicine
DX: R55 Syncope and collapse (principal); R11.0 Nausea; Z72.0 Tobacco use
CPT/HCPCS: 70450; 71045; 80053; 84443; 85025; 93005; 99285